=== PATIENT | female | born 1960 | race Caucasian/White ===

== ENCOUNTER → 2019-07-27 | Outpatient (CLI) | payer OTHER ==
--- NOTE | 2019-07-27 11:18 | RAD ---
Complete abdominal ultrasound 07/27/2019 10:00 AM Clinical History: Elevated LFTs Technique: Ultrasound examination of the abdomen was performed, and multiple static images were submitted for review. Comparison: CT of the abdomen and pelvis June 15, 2012 Findings: Pancreas is partially visualized. Visualized portions of the pancreas are grossly unremarkable. Liver measures 17 cm longitudinally which is within normal limits. Echotexture appears to be grossly normal. No focal hepatic lesions are identified on provided images. The common bile duct measures 5 mm in diameter which is within normal limits for age. Visualized aorta and IVC demonstrate no acute abnormality. Right kidney is normal in appearance measuring 10.2 cm in length. Spleen is top normal in size measuring 11.6 cm longitudinally. There is a possible 2.6 cm cyst within the mid left kidney. Visualization is limited. Left kidney measures 12.2 cm in length. IMPRESSION: 1. Limited visualization of a possible 2.6 cm cyst within the mid left kidney. Consider 6 month follow-up versus CT for further characterization. 2. Otherwise unremarkable abdominal ultrasound Electronically signed by: Alonso Trujillo MD (07/27/2019 11:15 AM) [id number]
== END | disposition home or self-care (01) ==
LOC: US 09:13
PROVIDERS: ATTEND Internal Medicine Gastroenterology
DX: R79.89 Other specified abnormal findings of blood chemistry (principal); Z90.49 Acquired absence of other specified parts of digestive tract
CPT/HCPCS: 76700

== ENCOUNTER → 2019-08-15 | Outpatient (CLI) | payer OTHER ==
[~2019-08-15] MED LIST: IOHEXOL 240 MG/ML 50ML VIAL. ONE
[2019-08-15] MEDS: IOHEXOL 300 MG/ML 75 ML VIAL. IV ONE (09:48)
--- NOTE | 2019-08-15 11:12 | RAD ---
EXAM: CT ABDOMEN/PELVIS WITH CONTRAST. HISTORY: Renal lesion. TECHNIQUE: Computed tomography of the abdomen and pelvis was performed after the intravenous administration of iodinated contrast. COMPARISON: 07/27/2019, 06/15/2012. FINDINGS: Lung windows through the visualized portions of the bases reveal mild atelectasis. Bone windows reveal no suspicious lesions. There is a small hiatal hernia. A hyperenhancing lesion in the dome of hepatic segment 8 measures 11 x 9 mm and has been stable since 2011. This is likely a benign lesion such as a hemangioma. The gallbladder is surgically absent. The spleen, adrenal glands and pancreas are unremarkable. There are no pathologically enlarged lymph nodes. There are extrarenal pelves in both kidneys. A fluid density focus just posterior to the left renal pelvis measures 1.9 x 1.6 cm. This may be another portion of the extrarenal pelvis or a peripelvic cyst. There are no solid left renal lesions to correspond with the site of concern on sonography. The appearance is stable chronically. There are also no suspicious right renal lesions. The appendix is not inflamed. There is no small bowel obstruction. IMPRESSION: 1. Bilateral extrarenal pelves. No suspicious renal lesions. 2. 11 mm stable enhancing hepatic lesion in segment 8, consistent with a benign hemangioma or possibly focal nodular hyperplasia. 3. Small hiatal hernia. *One or more of the following individualized dose reduction techniques were utilized for this examination: 1. Automated exposure control. 2. Adjustment of the mA and/or kV according to patient size. 3. Use of iterative reconstruction technique. Electronically signed by: Aura Alvarado MD (08/15/2019 11:09 AM) [facility]
== END | disposition home or self-care (01) ==
LOC: CT 07:53
PROVIDERS: ATTEND Internal Medicine Gastroenterology
DX: K44.9 Diaphragmatic hernia without obstruction or gangrene (principal); K76.9 Liver disease, unspecified; J98.11 Atelectasis; N28.1 Cyst of kidney, acquired
CPT/HCPCS: 74177; Q9967

== ENCOUNTER → 2020-10-10 | Outpatient (CLI) | payer OTHER ==
--- NOTE | 2020-10-10 09:49 | RAD ---
INDICATION: Reason: ATTN KIDNEYS R FLANK PAIN SWELLING / Spl. Instructions: / History: COMPARISON: August 15, 2019 TECHNIQUE: Grayscale and color ultrasound images obtained of the bilateral kidneys and bladder. Addit ionally focused ultrasound images were obtained at the region of patient's lump in the right back. FINDINGS: Renal: Right Kidney: 95 mm. Mildly prominent right extrarenal pelvis measuring up to 23 mm. Left Kidney: 100 mm. No hydronephrosis. Bladder: 27 cc prevoid. Soft tissues: There is a heterogenous area seen within the subcutaneous soft tissues with a hyperechoic component a nd a vessel coursing through this region. This does cause some distortion of the adjacent soft tissue s with this area measuring up to about 12 mm. IMPRESSION: * Distention of the right extrarenal pelvis but the patient had a similar appearance on prior CT the refore this could be a chronic finding. * Heterogenous region within the subcutaneous soft tissues of the right side of the back with echoge anamaria region within as well as some distortion of the adjacent soft tissues. This is nonspecific in brian ure with some possible causes including fat necrosis or lipoma within the area but a subcutaneous les ion is not excluded on this examination given the heterogenous tissue and distortion. If further eval uation is desired CT or MRI could further assess. Alternatively a follow-up ultrasound could BE obtai millie to ensure no increase in this finding to exclude a small subcutaneous soft tissue infiltrative le samantha. Electronically signed by: Dave Mishra MD (10/10/2020 9:46 AM) [id number]
== END ==
LOC: US 08:37
PROVIDERS: ATTEND Family Medicine
DX: N28.89 Other specified disorders of kidney and ureter (principal); M79.89 Other specified soft tissue disorders
CPT/HCPCS: 76770; 76881

== ENCOUNTER → 2020-10-29 | Outpatient (CLI) | payer OTHER ==
--- NOTE | 2020-10-29 12:26 | RAD ---
EXAM: Bilateral knees, standing view; left knee, 2 views. HISTORY: Pain. COMPARISON: None. FINDINGS: A standing view both knees and lateral and sunrise views of the left knee are obtained. The re is no fracture, dislocation or subluxation. There is enthesopathy along the left anterior tibial t ubercle and superior left patella. There is trace left knee joint fluid without a significant effusio n. IMPRESSION: No acute osseous finding. Electronically signed by: Melissa Snider MD (10/29/2020 12:23 PM) [id number]
== END ==
LOC: RAD 11:55
PROVIDERS: ATTEND Family Medicine
DX: M25.562 Pain in left knee (principal)
CPT/HCPCS: 73560; 73565

== ENCOUNTER → 2021-05-09 | Outpatient (CLI) | payer OTHER ==
--- NOTE | 2021-05-09 10:01 | RAD ---
EXAM: Thoracic sonogram. HISTORY: Pain within the right posterior thoracic soft tissues. TECHNIQUE: Sonographic imaging of the right chest wall at the site of palpable concern was performed. COMPARISON: 10/10/2020. FINDINGS: There is a tiny ill-defined focus of hypoechogenicity within the posterior right chest wall subcutaneous fat at the site of palpable concern. This is partially changed compared to the prior ex am. No discrete mass or fluid collection is seen. IMPRESSION: Stable ill-defined tiny hypoechoic focus within the right posterior back soft tissues at the site of palpable concern. The interval stability and absence of a focal mass is favors a benign e tiology such as fat necrosis or scarring. Given persistent pain in this location, CT or MRI can be pe rformed if there is concern for a sonographically occult lesion. Electronically signed by: Melissa Sinder MD (05/09/2021 9:59 AM) [id number]
== END ==
LOC: US 08:38
PROVIDERS: ATTEND Family Medicine
DX: R22.2 Localized swelling, mass and lump, trunk (principal)
CPT/HCPCS: 76705